=== PATIENT | female | born 1965 | race American Indian/Alaskan Native ===

== ENCOUNTER 2016-11-10 15:16 | Outpatient (CLI) | payer BC ==
--- NOTE | 2016-11-11 14:49 | Mammography Report ---
BILATERAL DIGITAL SCREENING MAMMOGRAM with CAD: 11/10/16 15:16:00 CLINICAL: Routine screening.History of bilateral reduction mammoplasty January 2016 COMPARISON:None available. FINDINGS: The breasts are almost entirely fatty.A predominantly fatty lobulated mass of the upper central right breast measures approximately 7 x 4 x 7 cm. No suspicious mass, architectural distortion or suspicious calcifications. IMPRESSION: No mammographic evidence of malignancy. Benign fat necrosis in the right breast with a 7 cm benign fatty mass. BI-RADS CATEGORY: 2 -- Benign RECOMMENDATION: Routine mammographic screening in one year. COMMENT: Patient follow-up letters are generated by our [employer] application.
== END 2016-11-10 15:17 | disposition home or self-care (01) ==
LOC: SPVWC 15:16
PROVIDERS: ATTEND Surgery
DX: Z12.31 Encounter for screening mammogram for malignant neoplasm of breast (principal)
CPT/HCPCS: 77067; G0202

== ENCOUNTER 2018-06-06 16:33 | Outpatient (CLI) | payer BC ==
[2018-06-06 17:00] LABS: Basophils # (Auto) 0.1 K/mm3 (0.0-0.1); Basophils % (Auto) 0.8 % (0.0-1.8); Eosinophils # (Auto) 0.1 K/mm3 (0.0-0.4); Eosinophils % (Auto) 2.3 % (0.0-4.3); Hematocrit 39.1 % (30.3-42.9); Hemoglobin 12.6 gm/dl (10.1-14.3); Lymphocytes # (Auto) 2.2 K/mm3 (1.2-5.4); Lymphocytes % (Auto) 34.2 % (13.4-35.0); Mean Corpuscular HGB Conc 32 % (30-34); Mean Corpuscular Hemoglobin 27 pg (28-32); Mean Corpuscular Volume 85 fl (79-97); Monocytes # (Auto) 0.5 K/mm3 (0.0-0.8); Platelet Count 190 K/mm3 (140-440); Red Blood Count 4.61 M/mm3 (3.65-5.03); Red Cell Distribution Width 14.1 % (13.2-15.2)
[2018-06-06 17:17] LABS: Alanine Aminotransferase 16 units/L (7-56); Albumin 4.6 g/dL (3.9-5); BUN/Creatinine Ratio 17; Blood Urea Nitrogen 12 mg/dL (7-17); Calcium 9.6 mg/dL (8.4-10.2); Hemolysis Index 3
== END 2018-06-06 16:34 | disposition home or self-care (01) ==
LOC: LAB 16:33
DX: R63.5 Abnormal weight gain (principal)
CPT/HCPCS: 36415; 80053; 84439; 84443; 85025

== ENCOUNTER 2018-11-02 12:43 | Outpatient (CLI) | payer BC ==
--- NOTE | 2018-11-02 13:50 | XRay Report ---
XRAY LUMBAR SPINE THREE VIEWS: 11/02/18 12:43:00 CLINICAL: Back pain. FINDINGS: Straightening of the lumbar spine with some loss of the normal cervical lordosis. Grade I L3-4 spondylolisthesis. The rest of the bodies are normal alignment. Mild anterior wedging of L1 and greater anterior wedging of T11 and T12. Disc space narrowing with vacuum disc phenomenon at L4-5 and prominent L4-5 anterior osteophytes. Smaller anterior osteophytes at L3-4 and L2-3. This is a The pedicles are intact. No fracture. Lower lumbar facet joint disease with facet joint sclerosis and cyst formation. Normal soft tissues. IMPRESSION: 1. Grade I L3-4 spondylolisthesis with no pars defect. 2. Multilevel lower lumbar facet joint arthropathy. 3. L4-5 degenerative disc disease. 4. Mild chronic anterior wedge compression deformities of L1, T12 and T11.
== END 2018-11-02 12:44 | disposition home or self-care (01) ==
LOC: SPVIMAG 12:43
DX: M43.16 Spondylolisthesis, lumbar region (principal); M51.36 Other intervertebral disc degeneration, lumbar region; M43.8X6 Other specified deforming dorsopathies, lumbar region; M43.8X4 Other specified deforming dorsopathies, thoracic region; M46.86 Other specified inflammatory spondylopathies, lumbar region
CPT/HCPCS: 72100

== ENCOUNTER 2018-11-02 13:31 | Outpatient (CLI) | payer BC ==
[2018-11-02 13:52] LABS: Hematocrit 38.7 % (30.3-42.9); Hemoglobin 12.7 gm/dl (10.1-14.3); Mean Corpuscular HGB Conc 33 % (30-34); Mean Corpuscular Volume 84 fl (79-97); Platelet Count 194 K/mm3 (140-440); Red Blood Count 4.62 M/mm3 (3.65-5.03); Red Cell Distribution Width 14.1 % (13.2-15.2)
[2018-11-02 14:17] LABS: BUN/Creatinine Ratio 20; Blood Urea Nitrogen 12 mg/dL (7-17); Calcium 9.3 mg/dL (8.4-10.2); Hemolysis Index 4
== END 2018-11-02 13:32 | disposition home or self-care (01) ==
LOC: LAB 13:31
DX: M54.16 Radiculopathy, lumbar region (principal)
CPT/HCPCS: 36415; 80048; 82607; 83036; 85027

== ENCOUNTER 2019-02-04 12:44 | Outpatient (CLI) | payer BC ==
--- NOTE | 2019-02-05 07:02 | Magnetic Resonance Report ---
PROCEDURE: MR LUMBAR SPINE WO/W CON TECHNIQUE: Multisequence, multiplanar MR imaging is obtained through the lumbar spine prior and subs equent to intravenous administration of 18 cc MultiHance gadolinium contrast HISTORY: Spondylolisthesis COMPARISONS: radiographs 11/02/2018 FINDINGS: Transitional lumbosacral anatomy is present with right-sided pseudoarthrosis. The superiormost imaged intervertebral disc space on sagittal imaging is designated T11-T12. There is mild anterior spondylo listhesis at the level designated L3-L4. Lordotic curvature of the lumbar spine is otherwise preserve d. Endplate degeneration at the level designated L5-S1. Marrow signal is otherwise within normal limi ts. No acute fracture or infiltrative process. The conus terminates at the L1 level. Caudae quina is normal in caliber and signal characteristics. No abnormal enhancement The para spinal soft tissues to include the imaged portions of the abdomen and pelvis are without significant signal abnormality. Small posterior disc bulge at T11-T12 without significant spinal canal or neural foraminal stenosis. Disc hydration and disc height are within normal limits T12-L1 and L1-L2, and there is no significant spinal canal or neural foraminal stenosis at these levels. There is mild disc desiccation and mild loss in disc height at L2-L3. Small circumferential disc bulg e. Moderate facet arthropathy. Mild spinal canal and mild neural foraminal stenosis. At L3-L4 there is disc desiccation and moderate loss in disc height. Mild anterior listhesis. Moderat e facet arthrosis. Mild spinal canal and neural foraminal narrowing. At L4-L5 there is disc desiccation and moderate loss in disc height. Moderate facet arthropathy. Mode rate circumferential disc bulge and moderate spinal canal and neural foraminal stenosis. At L5-S1 there is no significant disc dehydration or spinal canal or neural foraminal stenosis. IMPRESSION: Transitional lumbosacral anatomy with right-sided pseudoarthrosis. At the levels designated L3-L4 and L4-L5 there are moderate sequela of disc degeneration, as detailed above. This document is electronically signed by Onur Curtis MD., February 05 2019 06:59:53 AM ET
== END 2019-02-04 12:45 | disposition home or self-care (01) ==
LOC: MRI 12:44
DX: M51.36 Other intervertebral disc degeneration, lumbar region (principal); M48.061 Spinal stenosis, lumbar region without neurogenic claudication; M51.24 Other intervertebral disc displacement, thoracic region; M51.26 Other intervertebral disc displacement, lumbar region; M96.0 Pseudarthrosis after fusion or arthrodesis
CPT/HCPCS: 72158; A9577

== ENCOUNTER 2020-08-18 15:55 | Outpatient (CLI) | payer BC ==
[2020-08-18 16:25] LABS: Basophils # (Auto) 0.1 K/mm3 (0.0-0.1); Eosinophils # (Auto) 0.1 K/mm3 (0.0-0.4); Eosinophils % (Auto) 1.8 % (0.0-4.3); Hematocrit 40.8 % (30.3-42.9); Hemoglobin 13.2 gm/dl (10.1-14.3); Lymphocytes # (Auto) 2.3 K/mm3 (1.2-5.4); Lymphocytes % (Auto) 40.8 % (13.4-35.0); Mean Corpuscular HGB Conc 33 % (30-34); Mean Corpuscular Volume 85 fl (79-97); Monocytes # (Auto) 0.4 K/mm3 (0.0-0.8); Monocytes % (Auto) 6.5 % (0.0-7.3); Platelet Count 212 K/mm3 (140-440); Red Blood Count 4.79 M/mm3 (3.65-5.03); Red Cell Distribution Width 14.4 % (13.2-15.2)
[2020-08-18 16:45] LABS: Alanine Aminotransferase 18 units/L (7-56); Albumin 4.8 g/dL (3.9-5); Blood Urea Nitrogen 13 mg/dL (7-17); Calcium 9.5 mg/dL (8.4-10.2); Hemolysis Index 30; LDL Cholesterol,Direct 115 mg/dL (50-130)
[2020-08-18 16:46] LABS: BUN/Creatinine Ratio 22
[2020-08-18 17:02] LABS: Chol/HDL Ratio 1.56 %; HDL Cholesterol 186 mg/dL (40-59)
== END 2020-08-18 15:56 | disposition home or self-care (01) ==
LOC: LAB 15:55
PROVIDERS: ATTEND Internal Medicine
DX: Z00.00 Encounter for general adult medical examination without abnormal findings (principal); Z13.220 Encounter for screening for lipoid disorders; Z13.29 Encounter for screening for other suspected endocrine disorder; Z13.21 Encounter for screening for nutritional disorder
CPT/HCPCS: 36415; 80053; 80061; 82306; 82607; 83036; 83735; 84443; 85025

== ENCOUNTER 2020-10-02 09:31 | Day surgery (SDC) | payer BC ==
[~2020-10-02 09:31] MED LIST: SODIUM CHLORIDE 0.9% 1000 ML 1,000 ML IV SCH
--- NOTE | 2020-10-02 10:04 | Anesthesia Consultation ---
Anesthesia Consult and Med Hx Date of service: 10/02/20 - Airway Anesthetic Teeth Evaluation: Good ROM Head & Neck: Adequate Mental/Hyoid Distance: Adequate Mallampati Class: Class II Intubation Access Assessment: Probably Good - Pre-Operative Health Status ASA Pre-Surgery Classification: ASA2 Proposed Anesthetic Plan: MAC - Pulmonary Hx Smoking: No (quit 25 years) Hx Asthma: No Hx Respiratory Symptoms: No SOB: No COPD: No Home Oxygen Therapy: No Hx Pneumonia: No Hx Sleep Apnea: Yes - Cardiovascular System Hx Hypertension: No Hx Coronary Artery Disease: No Hx Heart Attack/AMI: No Hx Angina: No Hx Percutaneous Transluminal Coronary Angioplasty (PTCA): No Hx Cardia Arrhythmia: No Hx Pacemaker: No Hx Internal Defibrillator: No Hx Valvular Heart Disease: No Hx Heart Murmur: No Hx Peripheral Vascular Disease: No - Central Nervous System Hx Neuromuscular Disorder: No Hx Seizures: No CVA: No Hx Back Pain: No Hx Psychiatric Problems: Yes (anexity) - Gastrointestinal Hx Ulcer: No Hx Gastroesophageal Reflux Disease: No - Endocrine Hx Renal Disease: No Hx End Stage Renal Disease: No Hx Cirrhosis: No Hx Liver Disease: No Hx Insulin Dependent Diabetes: No Hx Non-Insulin Dependent Diabetes: No Hx Thyroid Disease: No Hx Hypothyroidism: No Hx Hyperthyroidism: No - Hematic Hx Anemia: No Hx Sickle Cell Disease: No - Other Systems Hx Alcohol Use: Yes (occ.) Hx Substance Use: No Hx Cancer: No Hx Obesity: No
--- NOTE | 2020-10-02 10:05 | Anesthesia Day of Surgery ---
Anesthesia Day of Surgery - Day of Surgery Patient Examined: Yes Patient H&P Reviewed: Yes Patient is NPO: Yes
[2020-10-02] MEDS ORDERED: propofoL 200 MG/20 ML VIAL IV ONE ×3 (10:45→11:22)
[2020-10-02] MEDS ORDERED: LIDOCAINE MPF (2%) 20 MG/1 ML VIAL 5 ML ONE (10:54)
[2020-10-02] MEDS ORDERED: LIDOCAINE 2% UROJECT 10 ML JELLY ONE (11:10)
[2020-10-02] MEDS ORDERED: LIDOCAINE 2% UROJECT 10 ML JELLY UR ONE (11:40)
--- NOTE | 2020-10-02 11:45 | Procedure Note ---
Date of procedure: 10/02/20 Pre-op diagnosis: Colon Polyp screening/h/o Hemorrhoids/Hematochezia Post-op diagnosis: other (Rectal Polyp (removed by Cold biopsy)/ Internal Hemorrhoids (s/p banding x3)/ No diverticul noted) Procedure: Colonoscopy with cold biopsy/ Flexible Sigmoidoscoyp with Banding x 3 (4 Bands used) Anesthesia: MAC Surgeon: KAYLEIGH SWENSON Estimated blood loss: minimal Pathology: list Specimen disposition: to lab Condition: stable Disposition: same day (Treat with Analgesic and Anusol AC supp. Avoid aspirina nd NSAID for 4 days; otherwise resume home medication and follow up in 1 to 2 weeks ([phone]).)
[2020-10-02 13:23] VITALS: BP 145/88
--- NOTE | 2020-10-02 13:47 | Post Anesthesia Evaluation ---
- Post Anesthesia Evaluation Patient Participated: Yes Airway Patent: Yes Stable Respiratory Function: Yes Nausea/Vomiting: No Temp > 96.8F: Yes Pain Manageable: Yes Adequeate Hydration: Yes Anesthesia Complications: No Block Receding Appropriately: Not Applicable Patient on Ventilator: No
--- NOTE | 2020-10-02 16:18 | Operative Report ---
PROCEDURE: Colonoscopy with biopsy. INDICATIONS: This is a 55-year-old -Irish female who has never had a colonoscopy before. This was done as part of colon polyp screening. She also on occasion has problems with hemorrhoids and on occasion hematochezia. Colonoscopy was also done to assess for any internal hemorrhoids and to treat them with banding if necessary. DESCRIPTION OF PROCEDURE: The procedure was done after getting informed consent. Initial rectal exam did show a sentinel hemorrhoid and the instrument was then passed through the rectum onto the cecum, which was identified with ileocecal valve and the appendiceal orifice. Cecum was also visualized on the retroverted view. No additional pathology was noted. The cecum, ascending colon, transverse colon, descending colon, and sigmoid showed normal mucosa. The rectum did show moderate internal hemorrhoid on the retroverted view as well as a small 7-8 mm rectal polyp, possibly hyperplastic that was removed by cold biopsy with minimal bleeding. ASSESSMENT: Colon polyp screening, hematochezia, solitary rectal polyp removed by cold biopsy, moderate internal hemorrhoid. PLAN: To do a flex sig with banding, have the patient avoid aspirin and aspirin-related products for the next few days and to treat the patient with Sitz bath and Anusol-HC suppository and to do a flex sig with banding. Procedure was done in the GI lab with assistance of the GI lab team, which included sofie Haddad and with assistance of anesthesia. JOB# [id number] EMIR/KENNY
--- NOTE | 2020-10-02 16:22 | Operative Report ---
PROCEDURE: Flexible sigmoidoscopy with banding x 3. A 55-year-old -French female who has been having some problems with hemorrhoids and some mild hematochezia. Colonoscopy had shown a solitary rectal polyp that was removed by cold biopsy. The flexible sigmoidoscopy was done by introducing the EGD scope. Three of the largest hemorrhoids were then suctioned into the suction channel, 4 bands were applied, 2 to one of the largest bands and 1 band to the other 3. At the end of the procedure, lidocaine gel was injected into the rectal vault and smeared. There was minimal bleeding and complications associated with the procedure. ASSESSMENT: Flexible sigmoidoscopy with banding of 3 internal hemorrhoid bands with application of 4 bands. PLAN: To give the patient some analgesics if needed. Have the patient use Sitz bath and Anusol-HC suppository if needed. The patient will be asked to avoid aspirin and aspirin-related products for the next 5 days, but otherwise resume home medication. Follow up in the office in 1-2 weeks' time. The procedure was done in the GI lab with assistance of the GI lab team, which included sofie Mas and with assistance of anesthesia. JOB# [id number] EMIR/KENNY
== END 2020-10-02 09:32 | disposition home or self-care (01) ==
LOC: GIO 09:31
DX: K92.1 Melena (principal); K64.8 Other hemorrhoids; D12.8 Benign neoplasm of rectum; G47.30 Sleep apnea, unspecified; F41.9 Anxiety disorder, unspecified; Z72.89 Other problems related to lifestyle; Z98.890 Other specified postprocedural states; Z79.899 Other long term (current) drug therapy
CPT/HCPCS: 45380; 46221; 88305; J2704

== ENCOUNTER 2021-02-26 10:44 | Outpatient (CLI) | payer BC ==
--- NOTE | 2021-02-26 12:42 | Magnetic Resonance Report ---
MRI CERVICAL SPINE WITHOUT CONTRAST INDICATION / CLINICAL INFORMATION: CERVICALGIA. TECHNIQUE: Multisequence, multiplanar images of the cervical spine were obtained. COMPARISON: None available. FINDINGS: CRANIOCERVICAL JUNCTION:No significant abnormality. ALIGNMENT: No significant abnormality. VERTEBRAE:Normal marrow signal and vertebral body height for age. VISUALIZED SPINAL CORD: No significant abnormality. [id number] ANALYSIS: C2-3: Left foraminal stenoses from marked facet joint hypertrophic changes and uncovertebral joint hy pertrophy; right neuroforamen normal; spinal cord is normal C3-4: Disc height loss; Facet joint hypertrophic changes more on the right side; bulging disc; neurof oramina are normal C4-5: Disc height loss; disc osteophyte complex predominantly soft disc towards the left side; bilate ral foraminal stenoses worse on the left side; spinal cord is not compromised C5-6: Disc height loss; disc osteophyte complex (predominantly soft disc) towards the right side; rig ht neuroforamen is narrowed C6-7: Disc osteophyte complex towards the right subarticular zone; predominantly soft disc; neurofora luis are normal C7-T1: Trace anterolisthesis; neuroforamina are normal PARASPINAL SOFT TISSUES: No significant abnormality. ADDITIONAL FINDINGS: None. IMPRESSION: C2-C3: Left foraminal stenoses from marked facet joint hypertrophic changes C3-C4: Joint hypertrophic changes more on the right side; normal neuroforamina C4-C5: Disc osteophyte complex (predominantly soft disc) (towards the left side; bilateral foraminal stenoses worse on the left side C5-C6: Disc osteophyte complex (predominantly soft disc) towards the right side; right foraminal sten oses C6-C7: Disc osteophyte complex towards the right subarticular zone (predominantly soft disc) normal n euroforamina Signer Name: Gabe Zurita MD Signed: 02/26/2021 12:37 PM Workstation Name: [id number]
== END 2021-02-26 10:45 | disposition home or self-care (01) ==
LOC: MRI 10:44
PROVIDERS: ATTEND Internal Medicine
DX: M48.02 Spinal stenosis, cervical region (principal); M25.78 Osteophyte, vertebrae
CPT/HCPCS: 72141

== ENCOUNTER 2021-09-10 07:43 | Day surgery (SDC) | payer BC ==
--- NOTE | 2021-09-10 08:31 | Anesthesia Day of Surgery ---
Anesthesia Day of Surgery - Day of Surgery Patient Examined: Yes Patient H&P Reviewed: Yes Patient is NPO: Yes
--- NOTE | 2021-09-10 08:31 | Anesthesia Consultation ---
Anesthesia Consult and Med Hx Date of service: 09/10/21 - Airway Anesthetic Teeth Evaluation: Good, Caps, Crowns ROM Head & Neck: Adequate Mental/Hyoid Distance: Adequate Mallampati Class: Class II Intubation Access Assessment: Probably Good - Pre-Operative Health Status ASA Pre-Surgery Classification: ASA2 Proposed Anesthetic Plan: MAC - Pulmonary Hx Smoking: No (quit 25 years) Hx Asthma: No Hx Respiratory Symptoms: No SOB: No COPD: No Hx Pneumonia: No Hx Sleep Apnea: Yes - Cardiovascular System Hx Hypertension: No Hx Coronary Artery Disease: No Hx Heart Attack/AMI: No Hx Angina: No Hx Percutaneous Transluminal Coronary Angioplasty (PTCA): No Hx Cardia Arrhythmia: No Hx Pacemaker: No Hx Internal Defibrillator: No Hx Valvular Heart Disease: No Hx Heart Murmur: No Hx Peripheral Vascular Disease: No - Central Nervous System Hx Neuromuscular Disorder: No Hx Seizures: No CVA: No Hx Back Pain: No Hx Psychiatric Problems: Yes (ANXIETY) - Gastrointestinal Hx Ulcer: No Hx Gastroesophageal Reflux Disease: No - Endocrine Hx Renal Disease: No Hx End Stage Renal Disease: No Hx Cirrhosis: No Hx Liver Disease: No Hx Insulin Dependent Diabetes: No Hx Non-Insulin Dependent Diabetes: No Hx Thyroid Disease: No Hx Hypothyroidism: No Hx Hyperthyroidism: No - Hematic Hx Anemia: No Hx Sickle Cell Disease: No - Other Systems Hx Alcohol Use: Yes (occ.) Hx Substance Use: No Hx Cancer: No Hx Obesity: No
[2021-09-10] MEDS ORDERED: propofoL 200 MG/20 ML VIAL IV ONE ×2 (09:33→09:52)
[2021-09-10] MEDS ORDERED: LIDOCAINE JELLY (2%) 5 ML TOPICAL ONE (09:47)
[2021-09-10] MEDS ORDERED: LIDOCAINE 2% UROJECT 10 ML JELLY MM ONE (10:07)
--- NOTE | 2021-09-10 10:16 | Procedure Note ---
Date of procedure: 09/10/21 Pre-op diagnosis: Colon Polyp Screening/ Hematochezia Post-op diagnosis: other (No Colon Polyps or Diverticular Disease noted/ Normal Terminal Ileal Mucosa/ Hematochizia secondary to Moderate Internal Hemorrhoids) Procedure: Colonoscopy/ Flexible Sigmoidoscopt with banding x 4 Anesthesia: MAC Surgeon: KAYLEIGH SWENSON Estimated blood loss: minimal Pathology: none Condition: stable Disposition: same day (Tramadol prtn for pain. Avoid aspirin and NSAID for 45 days, otherwise resume home medication and F/U in 1 to 2 weeks ([phone]).)
[2021-09-10] MEDS ORDERED: HYDROcodone/ACETAMINOPHEN 5-325 MG TAB ONE (10:29)
[2021-09-10] MEDS ORDERED: HYDROcodone/ACETAMINOPHEN 5-325 MG TAB PO ONE (10:30)
--- NOTE | 2021-09-10 11:01 | Post Anesthesia Evaluation ---
- Post Anesthesia Evaluation Patient Participated: Yes Airway Patent: Yes Stable Respiratory Function: Yes Nausea/Vomiting: No Temp > 96.8F: Yes Pain Manageable: Yes Adequeate Hydration: Yes Anesthesia Complications: No
[2021-09-10 18:14] VITALS: BP 116/68
--- NOTE | 2021-09-17 09:25 | Operative Report ---
DATE OF SURGERY: 09/10/2021 PROCEDURE: Flexible sigmoidoscopy with banding. INDICATIONS: This is a 56-year-old -[place] female who has been complaining of hematochezia. She had a colonoscopy with successful banding done a few years earlier. She had a colonoscopy done, which showed presence of prominent internal hemorrhoids that was the cause of the patient's hematochezia. The patient underwent a flex sig with banding of 4 hemorrhoids. DESCRIPTION OF PROCEDURE: This was done after getting informed consent at the end of the colonoscopy. The EGD scope with the hemorrhoidal banding mechanism was introduced and retroflexed. Four of the largest hemorrhoids were then suctioned into the suction channel. The biggest had 2 bands put on at the other head. Three additional bands placed on it. A total of 4 hemorrhoids were banded with minimal to no bleeding. ASSESSMENT: Hematochezia secondary to moderate internal hemorrhoids, status post banding x4. PLAN: To treat the patient with tramadol on a p.r.n. basis for any pain. Have the patient avoid aspirin and aspirin-related products and follow up in the office in 1-2 weeks' time. Procedure was done in the GI lab with assistance of the GI lab team, which included the GI nurse, the orthodontic laboratory technician and with assistance of anesthesia. TID: [id number] RECEIPT: [id number] EMIR/MERRICK
--- NOTE | 2021-09-17 10:11 | Operative Report ---
DATE OF SURGERY: 09/10/2021 PROCEDURE: Colonoscopy. INDICATIONS: A 56-year-old -[place] female with prior history of colon polyp and hematochezia. Lately, the patient has been having hematochezia. Colonoscopy was done as part of colon polyps screening and to assess for the cause of the hematochezia and to do a flex sig and banding if required. DESCRIPTION OF PROCEDURE: Procedure was done after getting informed consent with MAC anesthesia on 09/10/2021. Initial rectal examination was unremarkable. Instrument was passed through the rectum onto the cecum, which was identified with ileocecal valve and the appendiceal orifice. Visualization was fair to good. The terminal ileum was intubated, showed normal mucosa. Cecum, ascending colon, transverse colon, descending colon, and sigmoid showed normal mucosa. There was no evidence of any polyps, colitis or diverticular disease. The rectum, however, showed moderate internal hemorrhoid, which may have been the cause of the patient's hematochezia and the patient will require banding for that to be treated. ASSESSMENT: Hematochezia secondary to moderate internal hemorrhoids. The patient is to undergo hemorrhoidal banding, colon polyp screening. No colon polyps noted at present. No diverticular disease noted. PLAN: To do a flex sig with banding and have the patient follow up in the office in 1-2 weeks' time. Avoid aspirin and aspirin-related products for the next few days. Otherwise resume home medication. Procedure was done in the GI lab with assistance of the GI lab team, which included the GI nurse, the technical instructor and with assistance of anesthesia. TID: [id number] RECEIPT: [id number] EMIR/THOMAS
== END 2021-09-10 07:44 | disposition home or self-care (01) ==
LOC: GIO 07:43
DX: K92.1 Melena (principal); K64.8 Other hemorrhoids; K63.89 Other specified diseases of intestine; G47.30 Sleep apnea, unspecified; F41.9 Anxiety disorder, unspecified; Z79.899 Other long term (current) drug therapy; Z98.890 Other specified postprocedural states; Z72.89 Other problems related to lifestyle
CPT/HCPCS: 45378; J2704; J7030; J7120; Q0162

== ENCOUNTER 2022-05-10 10:40 | Outpatient (CLI) | payer BC ==
[2022-05-10 11:30] LABS: Basophils % (Auto) 0.7 % (0.0-1.8); Eosinophils # (Auto) 0.1 K/mm3 (0.0-0.4); Eosinophils % (Auto) 2.1 % (0.0-4.3); Hematocrit 42.2 % (30.3-42.9); Hemoglobin 13.6 gm/dl (10.1-14.3); Lymphocytes # (Auto) 1.7 K/mm3 (1.2-5.4); Lymphocytes % (Auto) 38.5 % (13.4-35.0); Mean Corpuscular HGB Conc 32 % (30-34); Mean Corpuscular Volume 84 fl (79-97); Monocytes # (Auto) 0.2 K/mm3 (0.0-0.8); Monocytes % (Auto) 5.5 % (0.0-7.3); Platelet Count 189 K/mm3 (140-440); Red Blood Count 5.04 M/mm3 (3.65-5.03); Red Cell Distribution Width 14.1 % (13.2-15.2)
[2022-05-10 12:55] LABS: Alanine Aminotransferase 23 units/L (7-56); Albumin 5.3 g/dL (3.9-5); Blood Urea Nitrogen 10 mg/dL (7-17); Calcium 10.1 mg/dL (8.4-10.2); Hemolysis Index 3; LDL Cholesterol,Direct 107 mg/dL (50-130)
[2022-05-10 13:12] LABS: BUN/Creatinine Ratio 17; Chol/HDL Ratio 1.63 %; HDL Cholesterol 177 mg/dL (40-59)
== END 2022-05-10 10:41 | disposition home or self-care (01) ==
LOC: LAB 10:40
PROVIDERS: ATTEND Internal Medicine
DX: Z00.00 Encounter for general adult medical examination without abnormal findings (principal); R73.03 Prediabetes; E66.09 Other obesity due to excess calories; R56.9 Unspecified convulsions
CPT/HCPCS: 36415; 80053; 80061; 82652; 83036; 84443; 85025